=== PATIENT | male | born 1950 | race Caucasian/White ===

== ENCOUNTER 2019-09-12 01:29 | Emergency (ER) | payer BC, MEDICARE ==
--- NOTE | 2019-09-12 08:11 | RAD ---
RADIOGRAPH CHEST 2 VIEWS: DATE: 09/12/2019 HISTORY: 69-year-old male with cough FINDINGS: There is no airspace density, pulmonary edema, pleural effusion, pneumothorax, or cardiomegaly. IMPRESSION: No acute cardiopulmonary findings.
== END 2019-09-12 02:29 | disposition home or self-care (01) ==
LOC: SCSER 01:29
DX: J00 Acute nasopharyngitis [common cold] (principal); E11.9 Type 2 diabetes mellitus without complications; Z79.84 Long term (current) use of oral hypoglycemic drugs; Z79.899 Other long term (current) drug therapy
CPT/HCPCS: 71046; 93005; 94640; J7620

== ENCOUNTER 2019-11-15 11:04 | Emergency (ER) | payer BC, MEDICARE ==
--- NOTE | 2019-11-15 12:57 | CT ---
CT BRAIN WITHOUT CONTRAST: HISTORY: Trauma, headache FINDINGS: No evidence of acute infarct, hemorrhage, midline shift or abnormal extra-axial fluid collections is seen. The ventricular size is appropriate and the basilar cisterns are patent. The bony calvarium is intact. The visualized paranasal sinuses and mastoid air cells are well aerated. IMPRESSION: No CT evidence of acute intracranial process.
--- NOTE | 2019-11-15 13:57 | CT ---
CT OF CERVICAL SPINE PERFORMED WITHOUT CONTRAST ENHANCEMENT: HISTORY: Fall with neck injury. FINDINGS: There are severe arthritic changes of the spine. There is marked degenerative disk narrowing from th e C3-4 to the C6-7 level. There are prominent degenerative facet changes also present. There is mil d right-sided foraminal narrowing at C3-4. More severe right-sided foraminal narrowing at C4-5 and m arked bilateral foraminal narrowing at C5-6 also with a mild degree of canal stenosis. There is gopal ed right-sided foraminal narrowing at C6-7. There is no CT evidence for a fracture. IMPRESSION: No CT evidence of a fracture of the cervical spine. POS: [facility]
== END 2019-11-15 14:13 | disposition home or self-care (01) ==
LOC: ERS 11:04
DX: S01.01XA Laceration without foreign body of scalp, initial encounter (principal); E11.9 Type 2 diabetes mellitus without complications; I10 Essential (primary) hypertension; Z79.84 Long term (current) use of oral hypoglycemic drugs; Z79.899 Other long term (current) drug therapy; W22.8XXA Striking against or struck by other objects, initial encounter
CPT/HCPCS: 70450; 72125; L0120

== ENCOUNTER 2020-01-25 15:06 | Outpatient (CLI) | payer MEDICARE ==
--- NOTE | 2020-01-25 15:20 | RAD ---
Exam: XR Shoulder Rt 3 View STANDARD HISTORY: Right anterior shoulder pain. Patient fell 2 days ago. COMPARISON: None FINDINGS: There is a prominent osteophyte on the undersurface of the acromion. This was also seen on prior ches t x-ray on 09/12/2019. This does narrow the subacromial space. Minimal right acromioclavicular joint osteoarthritis is present. No fracture, dislocation, or other osseous abnormality is identified . IMPRESSION: 1. Prominent osteophyte on the undersurface of the acromion which projects inferiorly and medially to narrow the subacromial space. This prominent osteophyte was seen on prior chest x-ray and 2019. 2. Minimal right acromioclavicular joint osteoarthritis. 3. No acute osseous abnormality.
== END 2020-01-25 15:07 | disposition home or self-care (01) ==
LOC: BICRAD 15:06
PROVIDERS: ATTEND Family Medicine
DX: M25.511 Pain in right shoulder (principal); M19.011 Primary osteoarthritis, right shoulder